=== PATIENT | female | born 1985 | race Caucasian/White ===

== ENCOUNTER 2018-07-24 17:18 | Emergency (ER) | payer OTHER ==
[~2018-07-24] VITALS: Ht 165.1 cm; Wt 75.0 kg
[2018-07-24 17:19] VITALS: Ht 165.1 cm; Wt 75.0 kg
[2018-07-24] MEDS ORDERED: KETOROLAC 30 MG INJ IM STA (19:09)
[2018-07-24] MEDS ORDERED: HYDR-4011 PO ×2 (19:11→19:17)
[2018-07-24] MEDS ORDERED: IBUP-1542 PO ×2 (19:11→19:17)
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
[2018-07-24 19:51] VITALS: BP 138/78; PULSE 78; RESP 17
== END 2018-07-24 19:55 | disposition home or self-care (01) ==
LOC: FTE 17:18
DX: M54.9 Dorsalgia, unspecified (principal)
CPT/HCPCS: 81025; 96372; J1885; Z7502